=== PATIENT | female | born 1990 | race Caucasian/White ===

== ENCOUNTER 2019-07-02 00:45 | Emergency (ER) | payer SELFPAY ==
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
[2019-07-02] MEDS ORDERED: Acetaminophen 500 MG Tab PO ONE (01:01)
[2019-07-02] MEDS ORDERED: Ibuprofen 200 MG Tab PO STA (01:02)
[2019-07-02 01:18] LABS: CHLORIDE,CL 102 mmol/L (98-107); SODIUM,NA 140 mmol/L (136-145)
[2019-07-02 01:20] LABS: ANION GAP 14.5 mmol/L (10-20)
[2019-07-02] MEDS ORDERED: Oseltamivir 75 MG Cap PO SCH (01:45)
[2019-07-02] MEDS ORDERED: Take Home: Oseltamivir 75 MG Cap, 2 Cap Pack PO ONE (02:03)
== END 2019-07-02 02:13 | disposition home or self-care (01) ==
LOC: VM.ED 00:45
DX: J10.1 Influenza due to other identified influenza virus with other respiratory manifestations (principal)
CPT/HCPCS: 36415; 80048; 85025; 87804; 87804-59; 99283; 99283-GF; A9270-GY

== ENCOUNTER 2020-04-01 10:37 | Emergency (ER) | payer BC, OTHER ==
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
== END 2020-04-01 11:26 | disposition home or self-care (01) ==
LOC: VM.ED 10:37
DX: S09.90XA Unspecified injury of head, initial encounter (principal); S00.93XA Contusion of unspecified part of head, initial encounter; M41.9 Scoliosis, unspecified; Z88.8 Allergy status to other drugs, medicaments and biological substances; Z88.5 Allergy status to narcotic agent; Z79.899 Other long term (current) drug therapy; Y04.0XXA Assault by unarmed brawl or fight, initial encounter
CPT/HCPCS: 99283; 99284

== ENCOUNTER 2022-04-30 13:03 | Day surgery (SDC) | payer OTHER ==
[~2022-04-30 13:03] MED LIST: Lactated Ringers 1,000 ML IV SCH; Sodium Chloride 0.9% 10 ML Syringe FLUSH PRN
[2022-04-30] MEDS: Lactated Ringers 1,000 ML IV SCH (13:14)
[2022-04-30] MEDS ORDERED: Propofol 200 MG/20 ML SDV ONE (13:50)
[2022-04-30] MEDS ORDERED: fentaNYL 100 MCG/2 ML SDV ONE (13:51)
[2022-04-30] MEDS: Citric Acid/Sodium Citrate Solution 30 ML Cup PO ONE (13:57)
== END 2022-04-30 15:46 | disposition home or self-care (01) ==
LOC: VM.SDS 13:03 → MERGE 14:00 → VM.SDS 15:46
PROVIDERS: ATTEND Family Medicine
DX: K29.50 Unspecified chronic gastritis without bleeding (principal); K21.9 Gastro-esophageal reflux disease without esophagitis; K44.9 Diaphragmatic hernia without obstruction or gangrene; J30.9 Allergic rhinitis, unspecified; F41.9 Anxiety disorder, unspecified; M19.90 Unspecified osteoarthritis, unspecified site; Z98.890 Other specified postprocedural states; Z91.040 Latex allergy status; Z88.5 Allergy status to narcotic agent; Z91.048 Other nonmedicinal substance allergy status; Z79.899 Other long term (current) drug therapy; Z96.642 Presence of left artificial hip joint
CPT/HCPCS: 00731; 43239; A9270; J2704; J3010; J7120